=== PATIENT | male | born 1960 | race Caucasian/White ===

== ENCOUNTER 2018-10-04 21:30 | Emergency (ER) | payer MEDICARE, MEDICAID ==
[2018-10-05] MEDS: KETOROLAC 30 MG INJ IM (01:39)
== END 2018-10-05 02:51 | disposition home or self-care (01) ==
LOC: E/R 21:30
DX: S00.03XA Contusion of scalp, initial encounter (principal); F17.210 Nicotine dependence, cigarettes, uncomplicated; E11.9 Type 2 diabetes mellitus without complications; I10 Essential (primary) hypertension; V03.10XA Pedestrian on foot injured in collision with car, pick-up truck or van in traffic accident, initial encounter
CPT/HCPCS: 70450; 96372; 99285-25